=== PATIENT | female | born 1985 | race Two or more races ===

== ENCOUNTER 2018-01-15 14:25 | Emergency (ER) | payer MEDICAID ==
[~2018-01-15] VITALS: Ht 165.1 cm; Wt 54.4 kg
[2018-01-15 14:32] VITALS: BP 121/75
== END 2018-01-15 15:56 | disposition home or self-care (01) ==
LOC: ER 14:32
DX: K29.70 Gastritis, unspecified, without bleeding (principal); N64.4 Mastodynia
CPT/HCPCS: 76642; 99284; A4606; Z7610

== ENCOUNTER 2018-03-12 12:19 | Emergency (ER) | payer MEDICAID ==
[~2018-03-12] VITALS: Ht 165.1 cm; Wt 54.4 kg
[2018-03-12 14:00] LABS: BASOPHILS # (AUTO) 0.1 /CMM (0.0-0.2); BASOPHILS % (AUTO) 1.3 % (0.0-2.0); EOSINOPHILS % (AUTO) 0.7 % (0.0-6.0); HEMATOCRIT 42 % (33-45); HEMOGLOBIN 14.4 g/dL (11.5-14.8); LYMPHOCYTES # (AUTO) 2.6 /CMM (0.8-4.8); LYMPHOCYTES % (AUTO) 27.2 % (20.0-44.0); MEAN CORPUSCULAR HGB CONC 35 g/dl (31.0-36.0); MEAN CORPUSCULAR VOLUME 91 fL (82-100); MONOCYTES # (AUTO) 0.4 /CMM (0.1-1.30); MONOCYTES % (AUTO) 3.8 % (2.0-12.0); NEUTROPHILS # (AUTO) 6.2 /CMM (1.8-8.9); PLATELET COUNT (AUTO) 302 /CMM (150-450); RED BLOOD CELL COUNT(AUTO) 4.58 MIL/uL (4.0-5.2); WHITE BLOOD COUNT (AUTO) 9.4 K/uL (4.3-11.0)
[2018-03-12 14:08] LABS: CALCIUM, SERUM 9.2 mg/dL (8.5-10.1); CREATININE 0.7 mg/dL (0.6-1.3); POTASSIUM 3.7 mmol/L (3.5-5.1)
[2018-03-12 14:14] LABS: ALBUMIN 4.3 g/dL (3.4-5.0); BILIRUBIN,DIRECT 0.1 mg/dL (0.0-0.2); BILIRUBIN,TOTAL 0.3 mg/dL (0.2-1.0); TOTAL PROTEIN, SERUM 7.6 g/dL (6.4-8.2)
[2018-03-12 14:55] LABS: APPEARANCE,URINE Clear (CLEAR); BILIRUBIN,URINE Negative (NEGATIVE); BLOOD, URINE Negative Ery/uL (NEGATIVE); COLOR,URINE Yellow (YELLOW); KETONES,URINE Negative (NEGATIVE); LEUKOCYTE ESTERASE ,URINE Trace (NEGATIVE); NITRITE, URINE Negative (NEGATIVE); PROTEIN,URINE Negative (NEGATIVE); UGLUCOSE Negative (NEGATIVE); UROBILINOGEN,URINE 0.2 EU/dL (0.2)
[2018-03-12 14:58] LABS: BACTERIA,URINE Few /HPF (None Seen); RBC,URINE 0-2 /HPF (0-2); SQUAMOUS EPITHELIAL CELL,UR Few /HPF (None Seen)
[2018-03-12 15:00] VITALS: BP 122/75
== END 2018-03-12 15:10 | disposition home or self-care (01) ==
LOC: ER 12:19
DX: K29.70 Gastritis, unspecified, without bleeding (principal)
CPT/HCPCS: 36415; 76705; 80048; 80076; 81001; 83690; 84703; 85025; 99285; A4606; Z7610; 81000-TC

== ENCOUNTER 2018-06-29 10:58 | Emergency (ER) | payer MEDICAID, OTHER ==
[~2018-06-29] VITALS: Ht 167.6 cm; Wt 54.4 kg
--- NOTE | 2018-06-29 11:27 | NUR ---
C/O RIGHT EAR PAIN AND SORETHROAT SINCE LAST NIGHT. STATES SHE HAD RECENT SURGERY IN NOVEMBER "FOR A TUMOR" IN HER NECK. ALSO STATES SOME DIFFICULTY AND PAIN TAKING DEEP BREATHS. PULSE OX 100% ON ROOM AIR. PT IS AOX4, AMB, VSS, RR EVEN AND UNLABORED. NO ACUTE DISTRESS NOTED. NO OTHER COMPLAINTS AT THIS TIME. ICELANDIC-SPEAKING WITH ENLGISH-SPEAKING FAMILY MEMBER AT BEDSIDE. READY FOR EVAL.
--- NOTE | 2018-06-29 12:28 | NUR ---
DR PERKINS AT BEDSIDE FOR EVAL.
[2018-06-29 12:53] LABS: BASOPHILS % (AUTO) 0.7 % (0.0-2.0); HEMATOCRIT 40 % (33-45); HEMOGLOBIN 13.6 g/dL (11.5-14.8); LYMPHOCYTES # (AUTO) 2.5 /CMM (0.8-4.8); LYMPHOCYTES % (AUTO) 36.5 % (20.0-44.0); MEAN CORPUSCULAR HGB CONC 34 g/dl (31.0-36.0); MEAN CORPUSCULAR VOLUME 95 fL (82-100); MONOCYTES # (AUTO) 0.4 /CMM (0.1-1.30); MONOCYTES % (AUTO) 6.3 % (2.0-12.0); NEUTROPHILS # (AUTO) 3.8 /CMM (1.8-8.9); NEUTROPHILS % (AUTO) 55.5 % (43.0-81.0); PLATELET COUNT (AUTO) 312 /CMM (150-450); RED BLOOD CELL COUNT(AUTO) 4.23 MIL/uL (4.0-5.2); WHITE BLOOD COUNT (AUTO) 6.8 K/uL (4.3-11.0)
--- NOTE | 2018-06-29 12:58 | NUR ---
MEAT STOCK CLERK AT BEDSIDE
[2018-06-29 13:02] LABS: CREATININE 0.7 mg/dL (0.6-1.3)
--- NOTE | 2018-06-29 13:13 | NUR ---
PT RESTING COMFORTABLY IN BED. VSS. NO COMPLAINTS AT THIS TIME
--- NOTE | 2018-06-29 13:25 | NUR ---
PT TAKEN TO RADIOLOGY VIA
--- NOTE | 2018-06-29 14:51 | NUR ---
Patient discharged to home in stable condition. Written and verbal after care instructions given. Patient verbalizes understanding of instruction.
[2018-06-29 16:08] VITALS: BP 125/76
== END 2018-06-29 14:51 | disposition home or self-care (01) ==
LOC: ER 11:01
DX: M54.2 Cervicalgia (principal); R06.00 Dyspnea, unspecified; Z86.03 Personal history of neoplasm of uncertain behavior; Z98.890 Other specified postprocedural states; Z60.2 Problems related to living alone
CPT/HCPCS: 36415; 70360; 76536; 80048; 85025; 99284; A4606; Z7610